=== PATIENT | male | born 1940 | race Caucasian/White ===

== ENCOUNTER 2023-01-11 16:38 | Inpatient (IN) | payer OTHER ==
[~2023-01-11] VITALS: Ht 170.2 cm; Wt 57.0 kg
[2023-01-11] MEDS ORDERED: MORPHINE SULFATE 4 MG/ML SYR/VIAL IV ONE (17:30)
[2023-01-11] MEDS ORDERED: diphenhdrAMINE HCL 50 MG/1 ML VL IV ONE (17:30)
[2023-01-11 17:57] LABS: Basophils # (auto) 0 10 ^3/uL (0-0.2); Basophils % (auto) 0.3 % (0.0-2.0); Eosinophils # (auto) 0.7 10 ^3/uL (0-0.8); Eosinophils % (auto) 9.1 % (0.0-7.0); Hematocrit 35.6 % (41.0-53.0); Hemoglobin 11.6 g/dL (13.5-17.5); Lymphocytes % (auto) 26.9 % (10.0-50.0); Mean Corpuscular Hemoglobin 30.5 pg (28.0-32.0); Mean Corpuscular Hgb Conc. 32.5 g/dL (32.0-36.0); Mean Corpuscular Volume 93.8 fL (80.0-100.0); Monocytes # (auto) 0.6 10 ^3/uL (0-1.3); Monocytes % (auto) 8.6 % (0.0-12.0); Neutrophils # (auto) 4.1 10 ^3/uL (1.6-8.6); Neutrophils % (auto) 55.1 % (37.0-80.0); Nucleated Red Blood Cells % 0.1 %; Red Blood Cells 3.79 10^6/uL (4.5-5.90); Red Cell Distribution Width 14.7 % (11.8-14.3); White Blood Cell 7.5 10^3/uL (4.4-10.8)
[2023-01-11 18:18] LABS: Albumin 1.9 g/dL (3.4-5.0); BUN/Creatinine Ratio 11.5; Bilirubin, Total 0.4 mg/dL (0.2-1.0); Calcium 7.5 mg/dL (8.5-10.1); Total Protein 5.9 g/dL (6.4-8.2)
[2023-01-11] MEDS ORDERED: SODIUM CHLORIDE 0.9% 1,000 ML IV ONE ×2 (19:00→21:30)
[2023-01-11] MEDS ORDERED: PANTOPRAZOLE 40 MG/10 ML VIAL INJ IV ONE (22:00)
[2023-01-11] MEDS ORDERED: DOXY100T2 PO (22:03)
[2023-01-11] MEDS ORDERED: FAMO20TA10 PO (22:03)
[2023-01-11] MEDS ORDERED: METH4PAK3 (22:03)
[2023-01-11] MEDS ORDERED: CETI-120 PO (22:03)
[2023-01-11] MEDS ORDERED: TRIO1TP TOP (22:03)
[2023-01-11] MEDS ORDERED: CLOB0.055 TOP (22:03)
[2023-01-11] MEDS ORDERED: ZOLP5TAB5 PO (22:03)
[2023-01-11] MEDS ORDERED: AZEL0.054 EACHEYE (22:03)
[2023-01-12] MEDS ORDERED: MIDAZOLAM HCL 5 MG/ML-1ML VIAL IV ONE
[2023-01-12] MEDS ORDERED: SODIUM CHLORIDE 0.9% 1,000 ML IV ONE
[2023-01-12 01:54] LABS: Urine Bacteria FEW /hpf (None Seen); Urine Blood 1+ /uL (Negative); Urine Hyaline Cast FEW /lpf (0 - 2); Urine Mucus FEW (None Seen); Urine WBC 1 /hpf (0 - 3)
[2023-01-12] MEDS: ASCORBIC ACID 500 MG TAB PO SCH ×3 (01:56→23:04)
[2023-01-12] MEDS: SODIUM CHLORIDE 0.9% 1,000 ML IV SCH ×2 (04:06→07:30)
[2023-01-12] MEDS: HYDROcodone-ACET 5/325MG TAB PO PRN ×3 (04:12→15:28)
[2023-01-12 06:35] LABS: Basophils # (auto) 0.1 10 ^3/uL (0-0.2); Eosinophils # (auto) 0.5 10 ^3/uL (0-0.8); Eosinophils % (auto) 7.8 % (0.0-7.0); Hematocrit 32.6 % (41.0-53.0); Hemoglobin 10.8 g/dL (13.5-17.5); Lymphocytes # (auto) 1.5 10 ^3/uL (0.4-5.4); Lymphocytes % (auto) 22.2 % (10.0-50.0); Mean Corpuscular Hemoglobin 30.1 pg (28.0-32.0); Mean Corpuscular Hgb Conc. 33.2 g/dL (32.0-36.0); Mean Corpuscular Volume 90.8 fL (80.0-100.0); Monocytes # (auto) 0.6 10 ^3/uL (0-1.3); Monocytes % (auto) 8.9 % (0.0-12.0); Neutrophils # (auto) 4.1 10 ^3/uL (1.6-8.6); Neutrophils % (auto) 60.1 % (37.0-80.0); Red Blood Cells 3.59 10^6/uL (4.5-5.90); Red Cell Distribution Width 14.2 % (11.8-14.3); White Blood Cell 6.8 10^3/uL (4.4-10.8)
[2023-01-12 06:41] LABS: Albumin 1.8 g/dL (3.4-5.0); Calcium 7.8 mg/dL (8.5-10.1)
[2023-01-12 06:44] LABS: BUN/Creatinine Ratio 13.1
[2023-01-12 06:46] LABS: Bilirubin, Total 0.4 mg/dL (0.2-1.0); Total Protein 6.3 g/dL (6.4-8.2)
[2023-01-12] MEDS: TRIAMCINOLONE ACET 0.1% TOPICAL CREAM 15GM TOP SCH (10:00)
[2023-01-12] MEDS: ENOXAPARIN SOD 30 MG/0.3 ML SYRINGE SC SCH (10:00)
[2023-01-12] MEDS: ZINC SULFATE 220mg CAP or TAB PO SCH (10:09)
[2023-01-12] MEDS: PANTOPRAZOLE 40 MG/10 ML VIAL INJ IV SCH (10:09)
[2023-01-12] MEDS: MULTIPLE VITAMIN TAB PO SCH (10:09)
[2023-01-12] MEDS: SODIUM BICARBONATE 50ML VIAL 50 ML in SOD CHL 0.45% 1,000 ML IV SCH ×2 (13:12→23:05)
[2023-01-12] MEDS ORDERED: cefTRIAXone 1GM/50ML D5W 50 ML IV ONE (13:30)
[2023-01-12 13:51] LABS: Protein, Urine 191.4 mg/dL (0.0-11.9)
[2023-01-12 22:55] VITALS: BP 168/86
[2023-01-12] MEDS: diphenhdrAMINE HCL 50 MG/1 ML VL IV PRN (23:05)
[2023-01-13 00:17] VITALS: BP 169/64
[2023-01-13 05:00] VITALS: BP 175/53
[2023-01-13] MEDS: diphenhdrAMINE HCL 50 MG/1 ML VL IV PRN ×3 (05:25→22:35)
[2023-01-13 06:24] LABS: Hematocrit 28.5 % (41.0-53.0); Hemoglobin 9.6 g/dL (13.5-17.5); Mean Corpuscular Hemoglobin 31.1 pg (28.0-32.0); Mean Corpuscular Hgb Conc. 33.6 g/dL (32.0-36.0); Mean Corpuscular Volume 92.3 fL (80.0-100.0); Red Blood Cells 3.09 10^6/uL (4.5-5.90); Red Cell Distribution Width 14.5 % (11.8-14.3); White Blood Cell 9.3 10^3/uL (4.4-10.8)
[2023-01-13 06:25] LABS: BUN/Creatinine Ratio 13.2; Calcium 7.5 mg/dL (8.5-10.1); Potassium 3.7 mmol/L (3.5-5.1)
[2023-01-13 07:01] LABS: Band Neutrophils % (manual) 0; Basophils % (manual) 0 (0.0-2.0); Blast Cells 0; Metamyelocytes % 0; Myelocytes % 0; Promyelocytes % 0; Reactive Lymphocytes 0
[2023-01-13 09:00] VITALS: BP 147/80
[2023-01-13 09:14] LABS: Eosinophils % (manual) 18 (0-7); Lymphocytes % (manual) 15 (10.0-50.0); Monocytes % (manual) 4 (0-12)
[2023-01-13] MEDS: ENOXAPARIN SOD 30 MG/0.3 ML SYRINGE SC SCH (10:00)
[2023-01-13] MEDS: PANTOPRAZOLE 40 MG/10 ML VIAL INJ IV SCH (12:23)
[2023-01-13] MEDS: cefTRIAXone 1GM/50ML D5W 50 ML IV SCH (12:23)
[2023-01-13] MEDS: ASCORBIC ACID 500 MG TAB PO SCH ×2 (12:23→21:13)
[2023-01-13] MEDS: ZINC SULFATE 220mg CAP or TAB PO SCH (12:23)
[2023-01-13] MEDS: MULTIPLE VITAMIN TAB PO SCH (12:23)
[2023-01-13] MEDS: TRIAMCINOLONE ACET 0.1% TOPICAL CREAM 15GM TOP SCH (12:28)
[2023-01-13] MEDS: ERGOCALCIFEROL 50,000 UNIT(1.25MG) CAP PO SCH (12:28)
[2023-01-13 12:55] VITALS: BP 120/60
[2023-01-13] MEDS: SODIUM BICARBONATE 50ML VIAL 50 ML in SOD CHL 0.45% 1,000 ML IV SCH (16:00)
[2023-01-13 17:00] VITALS: BP 158/72
[2023-01-13 22:00] VITALS: BP 134/80
[2023-01-14] MEDS: SODIUM BICARBONATE 50ML VIAL 50 ML in SOD CHL 0.45% 1,000 ML IV SCH (04:13)
[2023-01-14 05:00] VITALS: BP 175/73
[2023-01-14 06:35] LABS: Hematocrit 28.4 % (41.0-53.0); Hemoglobin 9.7 g/dL (13.5-17.5); Mean Corpuscular Hemoglobin 30.6 pg (28.0-32.0); Mean Corpuscular Volume 89.9 fL (80.0-100.0); Red Blood Cells 3.16 10^6/uL (4.5-5.90); Red Cell Distribution Width 14.1 % (11.8-14.3); White Blood Cell 9.5 10^3/uL (4.4-10.8)
[2023-01-14 06:51] LABS: Band Neutrophils % (manual) 0; Basophils % (manual) 0 (0.0-2.0); Blast Cells 0; Metamyelocytes % 0; Myelocytes % 0; Promyelocytes % 0; Reactive Lymphocytes 0
[2023-01-14 06:53] LABS: BUN/Creatinine Ratio 13.9; Calcium 7.8 mg/dL (8.5-10.1); Potassium 3.5 mmol/L (3.5-5.1)
[2023-01-14 07:28] LABS: Eosinophils % (manual) 25 (0-7); Lymphocytes % (manual) 15 (10.0-50.0); Monocytes % (manual) 6 (0-12)
[2023-01-14 08:45] VITALS: BP 186/69
[2023-01-14] MEDS: cefTRIAXone 1GM/50ML D5W 50 ML IV SCH (08:51)
[2023-01-14] MEDS: MULTIPLE VITAMIN TAB PO SCH (09:54)
[2023-01-14] MEDS: ZINC SULFATE 220mg CAP or TAB PO SCH (09:54)
[2023-01-14] MEDS: ASCORBIC ACID 500 MG TAB PO SCH ×2 (09:54→21:29)
[2023-01-14] MEDS: ENOXAPARIN SOD 30 MG/0.3 ML SYRINGE SC SCH (09:54)
[2023-01-14] MEDS: NICOTINE 14 MG/24HR TOPICAL PATCH TD SCH (09:55)
[2023-01-14] MEDS: TRIAMCINOLONE ACET 0.1% TOPICAL CREAM 15GM TOP SCH (14:33)
[2023-01-14] MEDS: diphenhdrAMINE HCL 50 MG/1 ML VL IV PRN (16:49)
[2023-01-14 17:00] VITALS: BP 124/76
[2023-01-14 21:49] VITALS: BP 153/55
[2023-01-15 04:31] VITALS: BP 134/56
[2023-01-15 06:34] LABS: Hematocrit 28.4 % (41.0-53.0); Hemoglobin 9.3 g/dL (13.5-17.5); Mean Corpuscular Hemoglobin 30.7 pg (28.0-32.0); Red Blood Cells 3.05 10^6/uL (4.5-5.90); Red Cell Distribution Width 14.6 % (11.8-14.3); White Blood Cell 10.1 10^3/uL (4.4-10.8)
[2023-01-15 07:20] LABS: Basophils % (manual) 0 (0.0-2.0); Blast Cells 0; Metamyelocytes % 0; Myelocytes % 0; Promyelocytes % 0; Reactive Lymphocytes 0
[2023-01-15 07:25] LABS: Calcium 7.3 mg/dL (8.5-10.1); Potassium 3.6 mmol/L (3.5-5.1)
[2023-01-15 07:38] LABS: BUN/Creatinine Ratio 12.8
[2023-01-15 09:00] VITALS: BP 119/63
[2023-01-15 09:06] LABS: Band Neutrophils % (manual) 10; Lymphocytes % (manual) 20 (10.0-50.0); Monocytes % (manual) 6 (0-12)
[2023-01-15 09:07] LABS: Eosinophils % (manual) 17 (0-7)
[2023-01-15] MEDS: TRIAMCINOLONE ACET 0.1% TOPICAL CREAM 15GM TOP SCH (09:48)
[2023-01-15] MEDS: MULTIPLE VITAMIN TAB PO SCH (09:49)
[2023-01-15] MEDS: diphenhdrAMINE HCL 50 MG/1 ML VL IV PRN ×2 (09:50→21:09)
[2023-01-15] MEDS: ZINC SULFATE 220mg CAP or TAB PO SCH (09:51)
[2023-01-15] MEDS: NICOTINE 14 MG/24HR TOPICAL PATCH TD SCH (09:51)
[2023-01-15] MEDS: ASCORBIC ACID 500 MG TAB PO SCH ×2 (09:53→21:09)
[2023-01-15] MEDS: ENOXAPARIN SOD 30 MG/0.3 ML SYRINGE SC SCH (09:53)
[2023-01-15] MEDS: cefTRIAXone 1GM/50ML D5W 50 ML IV SCH (09:54)
[2023-01-15 13:00] VITALS: BP 139/88
[2023-01-15] MEDS ORDERED: ATOR-47 PO (13:18)
[2023-01-15] MEDS: Ensure Enlive Strawberry 8oz Bottle PO SCH (18:00)
[2023-01-15] MEDS: ACETAMINOPHEN 325 MG TAB PO PRN (21:09)
[2023-01-16] MEDS: diphenhdrAMINE HCL 50 MG/1 ML VL IV PRN ×2 (03:06→16:04)
[2023-01-16 09:00] VITALS: BP 107/63
[2023-01-16] MEDS: cefTRIAXone 1GM/50ML D5W 50 ML IV SCH (09:51)
[2023-01-16] MEDS: MULTIPLE VITAMIN TAB PO SCH (09:51)
[2023-01-16] MEDS: Ensure Enlive Strawberry 8oz Bottle PO SCH ×2 (09:51→18:32)
[2023-01-16] MEDS: ZINC SULFATE 220mg CAP or TAB PO SCH (09:52)
[2023-01-16] MEDS: ACETAMINOPHEN 325 MG TAB PO PRN (09:52)
[2023-01-16] MEDS: NICOTINE 14 MG/24HR TOPICAL PATCH TD SCH (09:53)
[2023-01-16] MEDS: Pro-Stat SF 30ml Vanilla PO SCH (09:53)
[2023-01-16] MEDS: ENOXAPARIN SOD 30 MG/0.3 ML SYRINGE SC SCH (09:53)
[2023-01-16] MEDS: ASCORBIC ACID 500 MG TAB PO SCH ×2 (09:53→21:29)
[2023-01-16] MEDS: TRIAMCINOLONE ACET 0.1% TOPICAL CREAM 15GM TOP SCH (09:54)
[2023-01-16 13:00] VITALS: BP 118/62
[2023-01-16 17:00] VITALS: BP 165/74
[2023-01-16 18:17] VITALS: BP 163/76
[2023-01-16 22:00] VITALS: BP 171/70
[2023-01-17] VITALS (8 sets, daily range): BP systolic 136–174; BP diastolic 55–74
[2023-01-17] MEDS: cefTRIAXone 1GM/50ML D5W 50 ML IV SCH (09:37)
[2023-01-17] MEDS: Ensure Enlive Strawberry 8oz Bottle PO SCH ×2 (09:38→19:45)
[2023-01-17] MEDS: ENOXAPARIN SOD 30 MG/0.3 ML SYRINGE SC SCH (09:38)
[2023-01-17] MEDS: ASCORBIC ACID 500 MG TAB PO SCH ×2 (09:39→21:58)
[2023-01-17] MEDS: MULTIPLE VITAMIN TAB PO SCH (09:39)
[2023-01-17] MEDS: ZINC SULFATE 220mg CAP or TAB PO SCH (09:39)
[2023-01-17] MEDS: TRIAMCINOLONE ACET 0.1% TOPICAL CREAM 15GM TOP SCH (09:50)
[2023-01-17] MEDS: NICOTINE 14 MG/24HR TOPICAL PATCH TD SCH (09:52)
[2023-01-17] MEDS: Pro-Stat SF 30ml Vanilla PO SCH (13:12)
[2023-01-18 05:00] VITALS: BP 123/46
[2023-01-18] MEDS: ENOXAPARIN SOD 30 MG/0.3 ML SYRINGE SC SCH (08:57)
[2023-01-18] MEDS: MULTIPLE VITAMIN TAB PO SCH (08:58)
[2023-01-18] MEDS: diphenhdrAMINE HCL 50 MG/1 ML VL IV PRN ×2 (08:58→17:55)
[2023-01-18] MEDS: cefTRIAXone 1GM/50ML D5W 50 ML IV SCH (08:58)
[2023-01-18] MEDS: ASCORBIC ACID 500 MG TAB PO SCH ×2 (08:58→21:48)
[2023-01-18] MEDS: ZINC SULFATE 220mg CAP or TAB PO SCH (08:58)
[2023-01-18 09:00] VITALS: BP 127/40
[2023-01-18] MEDS: Ensure Enlive Strawberry 8oz Bottle PO SCH ×2 (09:06→18:00)
[2023-01-18] MEDS: Pro-Stat SF 30ml Vanilla PO SCH (10:00)
[2023-01-18] MEDS: NICOTINE 14 MG/24HR TOPICAL PATCH TD SCH (10:14)
[2023-01-18] MEDS: TRIAMCINOLONE ACET 0.1% TOPICAL CREAM 15GM TOP SCH (10:14)
[2023-01-18 12:30] VITALS: BP 156/55
[2023-01-18] MEDS ORDERED: methylPREDNISolone SOD SUCC 40 MG/ML VL IV ONE (14:15)
[2023-01-18 16:44] VITALS: BP 133/41
[2023-01-18] MEDS: methylPREDNISolone SOD SUCC 40 MG/ML VL IV SCH (21:48)
[2023-01-18 22:00] VITALS: BP 131/55
[2023-01-19] MEDS: diphenhdrAMINE HCL 50 MG/1 ML VL IV PRN ×3 (01:57→16:42)
[2023-01-19 05:00] VITALS: BP 164/73
[2023-01-19] MEDS: hydrALAZINE HCL 20 MG/ML VL IV PRN (05:30)
[2023-01-19] MEDS: Ensure Enlive Strawberry 8oz Bottle PO SCH ×2 (08:00→17:38)
[2023-01-19 08:52] VITALS: BP 136/71
[2023-01-19] MEDS: ZINC SULFATE 220mg CAP or TAB PO SCH (09:55)
[2023-01-19] MEDS: MULTIPLE VITAMIN TAB PO SCH (09:55)
[2023-01-19] MEDS: ASCORBIC ACID 500 MG TAB PO SCH ×2 (09:55→22:36)
[2023-01-19] MEDS: methylPREDNISolone SOD SUCC 40 MG/ML VL IV SCH ×2 (09:56→22:36)
[2023-01-19] MEDS: ENOXAPARIN SOD 30 MG/0.3 ML SYRINGE SC SCH (09:56)
[2023-01-19] MEDS: NICOTINE 14 MG/24HR TOPICAL PATCH TD SCH (09:56)
[2023-01-19] MEDS: TRIAMCINOLONE ACET 0.1% TOPICAL CREAM 15GM TOP SCH (09:57)
[2023-01-19] MEDS: Pro-Stat SF 30ml Vanilla PO SCH (10:00)
[2023-01-19 13:00] VITALS: BP 132/74
[2023-01-19 16:47] VITALS: BP 157/70
[2023-01-19 21:49] VITALS: BP 124/61
[2023-01-20 05:13] VITALS: BP 163/69
[2023-01-20] MEDS: hydrALAZINE HCL 20 MG/ML VL IV PRN (06:21)
[2023-01-20] MEDS: Ensure Enlive Strawberry 8oz Bottle PO SCH ×2 (08:21→18:52)
[2023-01-20] MEDS: Pro-Stat SF 30ml Vanilla PO SCH (08:22)
[2023-01-20] MEDS: methylPREDNISolone SOD SUCC 40 MG/ML VL IV SCH ×2 (09:20→22:07)
[2023-01-20] MEDS: NICOTINE 14 MG/24HR TOPICAL PATCH TD SCH (09:22)
[2023-01-20] MEDS: ENOXAPARIN SOD 30 MG/0.3 ML SYRINGE SC SCH (09:22)
[2023-01-20] MEDS: ZINC SULFATE 220mg CAP or TAB PO SCH (09:23)
[2023-01-20] MEDS: ASCORBIC ACID 500 MG TAB PO SCH ×2 (09:23→22:07)
[2023-01-20] MEDS: MULTIPLE VITAMIN TAB PO SCH (09:24)
[2023-01-20] MEDS: TRIAMCINOLONE ACET 0.1% TOPICAL CREAM 15GM TOP SCH (09:28)
[2023-01-20 13:00] VITALS: BP 159/60
[2023-01-20] MEDS: ERGOCALCIFEROL 50,000 UNIT(1.25MG) CAP PO SCH (14:34)
[2023-01-20 17:00] VITALS: BP 144/72
[2023-01-20 22:00] VITALS: BP 137/50
[2023-01-20] MEDS ORDERED: [UNRECOGNIZED DRUG - OTHER] TOP SCH (22:00)
[2023-01-21 05:46] VITALS: BP 156/75
[2023-01-21] MEDS: hydrALAZINE HCL 20 MG/ML VL IV PRN (06:06)
[2023-01-21] MEDS: Ensure Enlive Strawberry 8oz Bottle PO SCH ×2 (07:54→17:43)
[2023-01-21 08:49] VITALS: BP 117/50
[2023-01-21] MEDS: EUCERIN CREAM 2OZ TUBE TOP SCH ×2 (10:00→21:15)
[2023-01-21] MEDS: ASCORBIC ACID 500 MG TAB PO SCH ×2 (10:00→21:14)
[2023-01-21] MEDS: Pro-Stat SF 30ml Vanilla PO SCH (10:00)
[2023-01-21] MEDS: MULTIPLE VITAMIN TAB PO SCH (10:00)
[2023-01-21] MEDS: NICOTINE 14 MG/24HR TOPICAL PATCH TD SCH (10:00)
[2023-01-21] MEDS: ENOXAPARIN SOD 30 MG/0.3 ML SYRINGE SC SCH (10:00)
[2023-01-21] MEDS: methylPREDNISolone SOD SUCC 40 MG/ML VL IV SCH ×2 (10:00→21:14)
[2023-01-21] MEDS: ZINC SULFATE 220mg CAP or TAB PO SCH (10:00)
[2023-01-21] MEDS: TRIAMCINOLONE ACET 0.1% TOPICAL CREAM 15GM TOP SCH ×2 (10:00→21:15)
[2023-01-21 13:21] VITALS: BP 119/59
[2023-01-21] MEDS ORDERED: TRIAMCINOLONE ACET 0.1% TOPICAL CREAM 15GM TOP SCH (14:00)
[2023-01-21 16:56] VITALS: BP 143/61
[2023-01-21] MEDS: [UNRECOGNIZED DRUG - OTHER] TOP SCH (21:15)
[2023-01-21 21:53] VITALS: BP 125/62
[2023-01-22 05:00] VITALS: BP 128/68
[2023-01-22] MEDS: Ensure Enlive Strawberry 8oz Bottle PO SCH ×2 (08:00→18:00)
[2023-01-22 09:00] VITALS: BP 135/52
[2023-01-22] MEDS: ZINC SULFATE 220mg CAP or TAB PO SCH (10:00)
[2023-01-22] MEDS: methylPREDNISolone SOD SUCC 40 MG/ML VL IV SCH ×2 (10:00→23:05)
[2023-01-22] MEDS: NICOTINE 14 MG/24HR TOPICAL PATCH TD SCH (10:00)
[2023-01-22] MEDS: EUCERIN CREAM 2OZ TUBE TOP SCH ×2 (10:00→23:10)
[2023-01-22] MEDS: TRIAMCINOLONE ACET 0.1% TOPICAL CREAM 15GM TOP SCH ×2 (10:00→23:10)
[2023-01-22] MEDS: ENOXAPARIN SOD 30 MG/0.3 ML SYRINGE SC SCH (10:00)
[2023-01-22] MEDS: [UNRECOGNIZED DRUG - OTHER] TOP SCH ×2 (10:00→23:10)
[2023-01-22] MEDS: ASCORBIC ACID 500 MG TAB PO SCH ×2 (10:00→23:05)
[2023-01-22] MEDS: Pro-Stat SF 30ml Vanilla PO SCH (10:00)
[2023-01-22] MEDS: MULTIPLE VITAMIN TAB PO SCH (10:00)
[2023-01-22 13:00] VITALS: BP 171/76
[2023-01-22 17:00] VITALS: BP 163/72
[2023-01-22] MEDS: diphenhdrAMINE HCL 50 MG/1 ML VL IV PRN (23:07)
[2023-01-23 05:18] VITALS: BP 138/70
[2023-01-23 08:00] VITALS: BP 151/63
[2023-01-23] MEDS: Ensure Enlive Strawberry 8oz Bottle PO SCH ×2 (08:49→17:33)
[2023-01-23] MEDS: NICOTINE 14 MG/24HR TOPICAL PATCH TD SCH (10:24)
[2023-01-23] MEDS: methylPREDNISolone SOD SUCC 40 MG/ML VL IV SCH ×2 (10:29→21:47)
[2023-01-23] MEDS: EUCERIN CREAM 2OZ TUBE TOP SCH ×2 (10:29→21:47)
[2023-01-23] MEDS: MULTIPLE VITAMIN TAB PO SCH (10:29)
[2023-01-23] MEDS: TRIAMCINOLONE ACET 0.1% TOPICAL CREAM 15GM TOP SCH ×2 (10:29→21:47)
[2023-01-23] MEDS: ZINC SULFATE 220mg CAP or TAB PO SCH (10:29)
[2023-01-23] MEDS: Pro-Stat SF 30ml Vanilla PO SCH (10:29)
[2023-01-23] MEDS: ASCORBIC ACID 500 MG TAB PO SCH ×2 (10:29→21:47)
[2023-01-23] MEDS: [UNRECOGNIZED DRUG - OTHER] TOP SCH ×2 (10:29→21:47)
[2023-01-23] MEDS: ENOXAPARIN SOD 30 MG/0.3 ML SYRINGE SC SCH (10:29)
[2023-01-23 12:00] VITALS: BP 156/72
[2023-01-23 16:00] VITALS: BP 156/69
[2023-01-23 22:00] VITALS: BP 133/50
[2023-01-24 05:00] VITALS: BP 160/71
[2023-01-24 05:49] LABS: Basophils # (auto) 0 10 ^3/uL (0-0.2); Basophils % (auto) 0.1 % (0.0-2.0); Eosinophils # (auto) 0 10 ^3/uL (0-0.8); Hematocrit 27.2 % (41.0-53.0); Lymphocytes # (auto) 0.9 10 ^3/uL (0.4-5.4); Lymphocytes % (auto) 6.3 % (10.0-50.0); Mean Corpuscular Hemoglobin 30.2 pg (28.0-32.0); Mean Corpuscular Hgb Conc. 33.1 g/dL (32.0-36.0); Mean Corpuscular Volume 91.1 fL (80.0-100.0); Monocytes # (auto) 0.4 10 ^3/uL (0-1.3); Monocytes % (auto) 2.9 % (0.0-12.0); Neutrophils # (auto) 13.4 10 ^3/uL (1.6-8.6); Neutrophils % (auto) 90.7 % (37.0-80.0); Red Blood Cells 2.99 10^6/uL (4.5-5.90); Red Cell Distribution Width 14.2 % (11.8-14.3); White Blood Cell 14.7 10^3/uL (4.4-10.8)
[2023-01-24] MEDS: Ensure Enlive Strawberry 8oz Bottle PO SCH ×2 (08:00→18:13)
[2023-01-24 09:03] VITALS: BP 133/53
[2023-01-24 09:06] LABS: Calcium 8.2 mg/dL (8.5-10.1); Magnesium 2.5 mg/dL (1.6-2.6); Potassium 4.9 mmol/L (3.5-5.1)
[2023-01-24 09:11] LABS: BUN/Creatinine Ratio 36.3 (10.0-20.0); Bilirubin, Total 0.3 mg/dL (0.2-1.0); Total Protein 6.8 g/dL (6.4-8.2)
[2023-01-24] MEDS: Pro-Stat SF 30ml Vanilla PO SCH (10:00)
[2023-01-24] MEDS: [UNRECOGNIZED DRUG - OTHER] TOP SCH ×2 (10:00→21:47)
[2023-01-24] MEDS: EUCERIN CREAM 2OZ TUBE TOP SCH ×2 (10:00→21:44)
[2023-01-24] MEDS: TRIAMCINOLONE ACET 0.1% TOPICAL CREAM 15GM TOP SCH ×2 (10:00→21:46)
[2023-01-24] MEDS: NICOTINE 14 MG/24HR TOPICAL PATCH TD SCH (10:32)
[2023-01-24] MEDS: methylPREDNISolone SOD SUCC 40 MG/ML VL IV SCH (10:32)
[2023-01-24] MEDS: ZINC SULFATE 220mg CAP or TAB PO SCH (10:33)
[2023-01-24] MEDS: MULTIPLE VITAMIN TAB PO SCH (10:33)
[2023-01-24] MEDS: ASCORBIC ACID 500 MG TAB PO SCH ×2 (10:33→21:42)
[2023-01-24 13:00] VITALS: BP 134/60
[2023-01-24] MEDS ORDERED: AZITHROMYCIN 500MG/ 250ML 250 ML IV ONE (13:45)
[2023-01-24] MEDS ORDERED: CEFEPIME 1GM/ 50ML 50 ML IV ONE (13:45)
[2023-01-24] MEDS ORDERED: DEXTROSE (50%) 50ML SYRG IV PRN (13:45)
[2023-01-24 16:48] VITALS: BP 163/67
[2023-01-24] MEDS: InsuLIN REG 1unit/0.01ml Soln (100units/ml) SC SCH ×2 (16:56→21:49)
[2023-01-24] MEDS: ACCU-CHEK COMFORT CURVE STRIP VI SCH ×2 (17:07→21:47)
[2023-01-24] MEDS: SODIUM CHLORIDE 0.9% 1,000 ML IV SCH (17:08)
[2023-01-24] MEDS: diphenhdrAMINE HCL 50 MG/1 ML VL IV PRN (18:13)
[2023-01-24] MEDS: CEFEPIME 1GM/ 50ML 50 ML IV SCH (21:43)
[2023-01-25] MEDS: SODIUM CHLORIDE 0.9% 1,000 ML IV SCH ×2 (03:05→16:25)
[2023-01-25] MEDS: ACCU-CHEK COMFORT CURVE STRIP VI SCH ×4 (06:07→23:20)
[2023-01-25] MEDS: InsuLIN REG 1unit/0.01ml Soln (100units/ml) SC SCH ×4 (06:09→23:23)
[2023-01-25 08:00] VITALS: BP 121/50
[2023-01-25] MEDS: Ensure Enlive Strawberry 8oz Bottle PO SCH ×2 (08:35→17:39)
[2023-01-25 09:00] VITALS: BP 121/50
[2023-01-25] MEDS ORDERED: AZITHROMYCIN 500MG/ 250ML 250 ML IV SCH (10:00)
[2023-01-25] MEDS: CEFEPIME 1GM/ 50ML 50 ML IV SCH ×2 (11:46→23:18)
[2023-01-25] MEDS: predniSONE 20 MG TAB PO SCH (11:47)
[2023-01-25] MEDS: MULTIPLE VITAMIN TAB PO SCH (11:47)
[2023-01-25] MEDS: ZINC SULFATE 220mg CAP or TAB PO SCH (11:47)
[2023-01-25] MEDS: Pro-Stat SF 30ml Vanilla PO SCH (11:47)
[2023-01-25] MEDS: ASCORBIC ACID 500 MG TAB PO SCH ×2 (11:47→23:18)
[2023-01-25] MEDS: [UNRECOGNIZED DRUG - OTHER] TOP SCH ×2 (11:49→23:20)
[2023-01-25] MEDS: EUCERIN CREAM 2OZ TUBE TOP SCH ×2 (11:49→23:20)
[2023-01-25] MEDS: NICOTINE 14 MG/24HR TOPICAL PATCH TD SCH (11:49)
[2023-01-25] MEDS: TRIAMCINOLONE ACET 0.1% TOPICAL CREAM 15GM TOP SCH ×2 (11:50→23:20)
[2023-01-25] MEDS ORDERED: INSULIN LANTUS (GLARGINE) 1 /0.01ml (100units/ml) SC ONE (12:00)
[2023-01-25] MEDS ORDERED: DOCUSATE SOD 100 MG CAP PO ONE (12:00)
[2023-01-25] MEDS ORDERED: LACTULOSE 20Gm/30ML SOLN PO ONE (12:00)
[2023-01-25] MEDS ORDERED: FLEET ENEMA(ADULT) 135 ML PR ONE (12:00)
[2023-01-25 12:09] LABS: Basophils # (auto) 0 10 ^3/uL (0-0.2); Basophils % (auto) 0.1 % (0.0-2.0); Eosinophils # (auto) 0.2 10 ^3/uL (0-0.8); Eosinophils % (auto) 1.2 % (0.0-7.0); Hematocrit 30.2 % (41.0-53.0); Hemoglobin 9.6 g/dL (13.5-17.5); Lymphocytes # (auto) 1.7 10 ^3/uL (0.4-5.4); Lymphocytes % (auto) 13.6 % (10.0-50.0); Mean Corpuscular Hemoglobin 29.1 pg (28.0-32.0); Mean Corpuscular Hgb Conc. 31.9 g/dL (32.0-36.0); Mean Corpuscular Volume 91.2 fL (80.0-100.0); Monocytes % (auto) 7.5 % (0.0-12.0); Neutrophils # (auto) 9.9 10 ^3/uL (1.6-8.6); Neutrophils % (auto) 77.6 % (37.0-80.0); Nucleated Red Blood Cells % 0.1 %; Red Blood Cells 3.31 10^6/uL (4.5-5.90); Red Cell Distribution Width 14.4 % (11.8-14.3); White Blood Cell 12.8 10^3/uL (4.4-10.8)
[2023-01-25 12:16] LABS: Calcium 8.3 mg/dL (8.5-10.1); Potassium 4.4 mmol/L (3.5-5.1)
[2023-01-25 13:00] VITALS: BP 151/64
[2023-01-25 17:00] VITALS: BP 126/47
[2023-01-25 22:00] VITALS: BP 114/58
[2023-01-25] MEDS: DOCUSATE SOD 100 MG CAP PO SCH (23:18)
[2023-01-25] MEDS: INSULIN LANTUS (GLARGINE) 1 /0.01ml (100units/ml) SC SCH (23:19)
[2023-01-26 05:00] VITALS: BP 125/51
[2023-01-26] MEDS: SODIUM CHLORIDE 0.9% 1,000 ML IV SCH ×2 (06:15→20:48)
[2023-01-26] MEDS: ACCU-CHEK COMFORT CURVE STRIP VI SCH ×4 (06:16→22:34)
[2023-01-26] MEDS: InsuLIN REG 1unit/0.01ml Soln (100units/ml) SC SCH ×4 (06:19→22:37)
[2023-01-26] MEDS: INSULIN LANTUS (GLARGINE) 1 /0.01ml (100units/ml) SC SCH ×2 (06:21→22:36)
[2023-01-26 06:27] LABS: Basophils # (auto) 0 10 ^3/uL (0-0.2); Basophils % (auto) 0.1 % (0.0-2.0); Eosinophils # (auto) 0.1 10 ^3/uL (0-0.8); Hematocrit 25.5 % (41.0-53.0); Hemoglobin 8.5 g/dL (13.5-17.5); Lymphocytes # (auto) 1.6 10 ^3/uL (0.4-5.4); Lymphocytes % (auto) 11.8 % (10.0-50.0); Mean Corpuscular Hgb Conc. 33.1 g/dL (32.0-36.0); Mean Corpuscular Volume 90.7 fL (80.0-100.0); Monocytes # (auto) 0.9 10 ^3/uL (0-1.3); Monocytes % (auto) 6.8 % (0.0-12.0); Neutrophils # (auto) 11.2 10 ^3/uL (1.6-8.6); Neutrophils % (auto) 80.3 % (37.0-80.0); Red Blood Cells 2.82 10^6/uL (4.5-5.90); Red Cell Distribution Width 14.4 % (11.8-14.3); White Blood Cell 13.9 10^3/uL (4.4-10.8)
[2023-01-26 06:49] LABS: BUN/Creatinine Ratio 33.9 (10.0-20.0)
[2023-01-26 09:00] VITALS: BP 117/52
[2023-01-26] MEDS: ASCORBIC ACID 500 MG TAB PO SCH ×2 (09:52→20:57)
[2023-01-26] MEDS: MULTIPLE VITAMIN TAB PO SCH (09:52)
[2023-01-26] MEDS: predniSONE 20 MG TAB PO SCH (09:52)
[2023-01-26] MEDS: ZINC SULFATE 220mg CAP or TAB PO SCH (09:52)
[2023-01-26] MEDS: DOCUSATE SOD 100 MG CAP PO SCH ×2 (09:53→20:57)
[2023-01-26] MEDS: NICOTINE 14 MG/24HR TOPICAL PATCH TD SCH (09:54)
[2023-01-26] MEDS: CEFEPIME 1GM/ 50ML 50 ML IV SCH ×2 (09:55→20:57)
[2023-01-26] MEDS: Ensure Enlive Strawberry 8oz Bottle PO SCH ×2 (09:56→17:44)
[2023-01-26] MEDS: [UNRECOGNIZED DRUG - OTHER] TOP SCH ×2 (10:03→20:58)
[2023-01-26] MEDS: EUCERIN CREAM 2OZ TUBE TOP SCH ×2 (10:03→20:58)
[2023-01-26] MEDS: Pro-Stat SF 30ml Vanilla PO SCH (10:03)
[2023-01-26] MEDS: TRIAMCINOLONE ACET 0.1% TOPICAL CREAM 15GM TOP SCH ×2 (10:03→20:58)
[2023-01-26] MEDS: ACETAMINOPHEN 325 MG TAB PO PRN ×2 (11:40→20:48)
[2023-01-26 13:00] VITALS: BP 127/59
[2023-01-26 17:00] VITALS: BP 129/60
[2023-01-26 21:30] VITALS: BP 126/58
[2023-01-26] MEDS ORDERED: INSULIN LANTUS (GLARGINE) 1 /0.01ml (100units/ml) SC ONE (23:45)
[2023-01-27 05:00] VITALS: BP 126/68
[2023-01-27] MEDS: INSULIN LANTUS (GLARGINE) 1 /0.01ml (100units/ml) SC SCH ×2 (05:58→21:39)
[2023-01-27] MEDS: ACCU-CHEK COMFORT CURVE STRIP VI SCH ×4 (05:59→21:39)
[2023-01-27] MEDS: InsuLIN REG 1unit/0.01ml Soln (100units/ml) SC SCH ×4 (06:00→21:38)
[2023-01-27 09:00] VITALS: BP 130/57
[2023-01-27] MEDS: CEFEPIME 1GM/ 50ML 50 ML IV SCH ×2 (09:48→21:02)
[2023-01-27] MEDS: Ensure Enlive Strawberry 8oz Bottle PO SCH ×2 (09:48→17:28)
[2023-01-27] MEDS: SODIUM CHLORIDE 0.9% 1,000 ML IV SCH ×2 (09:48→17:28)
[2023-01-27] MEDS: ZINC SULFATE 220mg CAP or TAB PO SCH (09:48)
[2023-01-27] MEDS: predniSONE 20 MG TAB PO SCH (09:48)
[2023-01-27] MEDS: DOCUSATE SOD 100 MG CAP PO SCH ×2 (09:49→21:03)
[2023-01-27] MEDS: MULTIPLE VITAMIN TAB PO SCH (09:49)
[2023-01-27] MEDS: [UNRECOGNIZED DRUG - OTHER] TOP SCH ×2 (09:49→21:03)
[2023-01-27] MEDS: ASCORBIC ACID 500 MG TAB PO SCH ×2 (09:49→21:03)
[2023-01-27] MEDS: NICOTINE 14 MG/24HR TOPICAL PATCH TD SCH (09:49)
[2023-01-27] MEDS: Pro-Stat SF 30ml Vanilla PO SCH (09:49)
[2023-01-27] MEDS: EUCERIN CREAM 2OZ TUBE TOP SCH ×2 (09:50→21:03)
[2023-01-27] MEDS: TRIAMCINOLONE ACET 0.1% TOPICAL CREAM 15GM TOP SCH ×2 (09:50→21:04)
[2023-01-27] MEDS: ERGOCALCIFEROL 50,000 UNIT(1.25MG) CAP PO SCH (11:38)
[2023-01-27 13:00] VITALS: BP 134/71
[2023-01-27 17:00] VITALS: BP 124/60
[2023-01-27 22:00] VITALS: BP 136/51
[2023-01-28 05:00] VITALS: BP 150/69
[2023-01-28] MEDS: InsuLIN REG 1unit/0.01ml Soln (100units/ml) SC SCH ×4 (06:12→22:35)
[2023-01-28] MEDS: ACCU-CHEK COMFORT CURVE STRIP VI SCH ×4 (06:12→22:35)
[2023-01-28] MEDS: INSULIN LANTUS (GLARGINE) 1 /0.01ml (100units/ml) SC SCH (06:28)
[2023-01-28] MEDS: CEFEPIME 1GM/ 50ML 50 ML IV SCH ×2 (10:43→21:45)
[2023-01-28] MEDS: ASCORBIC ACID 500 MG TAB PO SCH ×2 (10:44→21:46)
[2023-01-28] MEDS: [UNRECOGNIZED DRUG - OTHER] TOP SCH ×2 (10:44→21:56)
[2023-01-28] MEDS: ZINC SULFATE 220mg CAP or TAB PO SCH (10:44)
[2023-01-28] MEDS: DOCUSATE SOD 100 MG CAP PO SCH ×2 (10:44→21:46)
[2023-01-28] MEDS: Ensure Enlive Strawberry 8oz Bottle PO SCH ×2 (10:44→17:53)
[2023-01-28] MEDS: Pro-Stat SF 30ml Vanilla PO SCH (10:44)
[2023-01-28] MEDS: MULTIPLE VITAMIN TAB PO SCH (10:44)
[2023-01-28] MEDS: EUCERIN CREAM 2OZ TUBE TOP SCH ×2 (10:45→21:56)
[2023-01-28] MEDS: TRIAMCINOLONE ACET 0.1% TOPICAL CREAM 15GM TOP SCH ×2 (10:45→21:57)
[2023-01-28] MEDS: NICOTINE 14 MG/24HR TOPICAL PATCH TD SCH (10:46)
[2023-01-28] MEDS: SODIUM CHLORIDE 0.9% 1,000 ML IV SCH (11:05)
[2023-01-28 13:00] VITALS: BP 143/70
[2023-01-28] MEDS: ACETAMINOPHEN 325 MG TAB PO PRN (15:39)
[2023-01-28 16:12] VITALS: BP 129/64
[2023-01-28 22:00] VITALS: BP 116/50
[2023-01-29 05:00] VITALS: BP 119/56
[2023-01-29] MEDS: ACCU-CHEK COMFORT CURVE STRIP VI SCH ×4 (06:04→22:56)
[2023-01-29] MEDS: InsuLIN REG 1unit/0.01ml Soln (100units/ml) SC SCH ×4 (06:04→22:54)
[2023-01-29] MEDS: Ensure Enlive Strawberry 8oz Bottle PO SCH ×2 (08:11→18:22)
[2023-01-29 09:00] VITALS: BP 133/60
[2023-01-29] MEDS: MULTIPLE VITAMIN TAB PO SCH (09:54)
[2023-01-29] MEDS: ACETAMINOPHEN 325 MG TAB PO PRN ×2 (09:54→15:43)
[2023-01-29] MEDS: ZINC SULFATE 220mg CAP or TAB PO SCH (09:54)
[2023-01-29] MEDS: DOCUSATE SOD 100 MG CAP PO SCH ×2 (09:54→22:53)
[2023-01-29] MEDS: CEFEPIME 1GM/ 50ML 50 ML IV SCH ×2 (09:56→22:00)
[2023-01-29] MEDS: NICOTINE 14 MG/24HR TOPICAL PATCH TD SCH (09:57)
[2023-01-29] MEDS: ASCORBIC ACID 500 MG TAB PO SCH ×2 (09:58→22:53)
[2023-01-29] MEDS: TRIAMCINOLONE ACET 0.1% TOPICAL CREAM 15GM TOP SCH ×2 (09:59→22:00)
[2023-01-29] MEDS: Pro-Stat SF 30ml Vanilla PO SCH (10:00)
[2023-01-29] MEDS: EUCERIN CREAM 2OZ TUBE TOP SCH ×2 (10:00→22:00)
[2023-01-29] MEDS: [UNRECOGNIZED DRUG - OTHER] TOP SCH ×2 (10:00→22:00)
[2023-01-29] MEDS: diphenhdrAMINE HCL 50 MG/1 ML VL IV PRN ×2 (10:06→22:56)
[2023-01-29 13:00] VITALS: BP 130/64
[2023-01-29 22:00] VITALS: BP_SYST 119
[2023-01-30 05:00] VITALS: BP_SYST 116; BP_SYST 120; BP_DIAS 48; BP_DIAS 56
[2023-01-30] MEDS: ACCU-CHEK COMFORT CURVE STRIP VI SCH ×4 (06:29→23:27)
[2023-01-30] MEDS: InsuLIN REG 1unit/0.01ml Soln (100units/ml) SC SCH ×4 (06:34→23:29)
[2023-01-30 07:30] VITALS: BP 132/80
[2023-01-30] MEDS: Ensure Enlive Strawberry 8oz Bottle PO SCH ×2 (08:00→18:12)
[2023-01-30 09:00] VITALS: BP 132/80
[2023-01-30] MEDS: DOCUSATE SOD 100 MG CAP PO SCH ×2 (11:46→23:26)
[2023-01-30] MEDS: ZINC SULFATE 220mg CAP or TAB PO SCH (11:47)
[2023-01-30] MEDS: ASCORBIC ACID 500 MG TAB PO SCH ×2 (11:48→23:26)
[2023-01-30] MEDS: MULTIPLE VITAMIN TAB PO SCH (11:49)
[2023-01-30] MEDS: NICOTINE 14 MG/24HR TOPICAL PATCH TD SCH (12:40)
[2023-01-30] MEDS: CEFEPIME 1GM/ 50ML 50 ML IV SCH ×2 (12:40→23:26)
[2023-01-30] MEDS: Pro-Stat SF 30ml Vanilla PO SCH (12:40)
[2023-01-30] MEDS: TRIAMCINOLONE ACET 0.1% TOPICAL CREAM 15GM TOP SCH ×2 (12:41→23:27)
[2023-01-30] MEDS: EUCERIN CREAM 2OZ TUBE TOP SCH ×2 (12:41→23:27)
[2023-01-30] MEDS: [UNRECOGNIZED DRUG - OTHER] TOP SCH ×2 (12:41→23:26)
[2023-01-30 13:00] VITALS: BP 127/84
[2023-01-30 22:00] VITALS: BP 128/45
[2023-01-31 05:00] VITALS: BP 131/79
[2023-01-31] MEDS: diphenhdrAMINE HCL 50 MG/1 ML VL IV PRN (05:47)
[2023-01-31] MEDS: ACCU-CHEK COMFORT CURVE STRIP VI SCH ×4 (05:48→22:04)
[2023-01-31] MEDS: InsuLIN REG 1unit/0.01ml Soln (100units/ml) SC SCH ×4 (05:57→22:06)
[2023-01-31 09:01] VITALS: BP 136/53
[2023-01-31] MEDS: DOCUSATE SOD 100 MG CAP PO SCH ×2 (12:04→22:03)
[2023-01-31] MEDS: ASCORBIC ACID 500 MG TAB PO SCH ×2 (12:04→22:04)
[2023-01-31] MEDS: MULTIPLE VITAMIN TAB PO SCH (12:04)
[2023-01-31] MEDS: Pro-Stat SF 30ml Vanilla PO SCH (12:04)
[2023-01-31] MEDS: Ensure Enlive Strawberry 8oz Bottle PO SCH ×2 (12:05→18:31)
[2023-01-31] MEDS: NICOTINE 14 MG/24HR TOPICAL PATCH TD SCH (12:05)
[2023-01-31] MEDS: TRIAMCINOLONE ACET 0.1% TOPICAL CREAM 15GM TOP SCH ×2 (12:06→22:04)
[2023-01-31] MEDS: EUCERIN CREAM 2OZ TUBE TOP SCH ×2 (12:06→22:05)
[2023-01-31] MEDS: [UNRECOGNIZED DRUG - OTHER] TOP SCH ×2 (12:23→22:05)
[2023-01-31] MEDS: ZINC SULFATE 220mg CAP or TAB PO SCH (12:30)
[2023-01-31] MEDS: CEFEPIME 1GM/ 50ML 50 ML IV SCH ×2 (12:42→22:03)
[2023-01-31 12:58] VITALS: BP 130/46
[2023-01-31 22:00] VITALS: BP 131/51
[2023-02-01 05:00] VITALS: BP 118/64
[2023-02-01] MEDS: ACCU-CHEK COMFORT CURVE STRIP VI SCH ×4 (06:10→22:36)
[2023-02-01] MEDS: InsuLIN REG 1unit/0.01ml Soln (100units/ml) SC SCH ×4 (06:13→22:52)
[2023-02-01 09:00] VITALS: BP 143/50
[2023-02-01] MEDS: Ensure Enlive Strawberry 8oz Bottle PO SCH ×2 (09:00→18:00)
[2023-02-01] MEDS: Pro-Stat SF 30ml Vanilla PO SCH (10:00)
[2023-02-01] MEDS: ZINC SULFATE 220mg CAP or TAB PO SCH (10:23)
[2023-02-01] MEDS: CEFEPIME 1GM/ 50ML 50 ML IV SCH (10:23)
[2023-02-01] MEDS: ASCORBIC ACID 500 MG TAB PO SCH ×2 (10:23→22:44)
[2023-02-01] MEDS: DOCUSATE SOD 100 MG CAP PO SCH ×2 (10:23→22:44)
[2023-02-01] MEDS: MULTIPLE VITAMIN TAB PO SCH (10:23)
[2023-02-01] MEDS: ACETAMINOPHEN 325 MG TAB PO PRN (10:39)
[2023-02-01] MEDS: NICOTINE 14 MG/24HR TOPICAL PATCH TD SCH (10:39)
[2023-02-01] MEDS: TRIAMCINOLONE ACET 0.1% TOPICAL CREAM 15GM TOP SCH ×2 (10:40→22:00)
[2023-02-01] MEDS: EUCERIN CREAM 2OZ TUBE TOP SCH ×2 (10:40→22:00)
[2023-02-01] MEDS: [UNRECOGNIZED DRUG - OTHER] TOP SCH ×2 (10:40→22:00)
[2023-02-01 16:52] VITALS: BP 119/50
[2023-02-01 21:55] VITALS: BP 113/56
[2023-02-02 05:00] VITALS: BP 129/53
[2023-02-02] MEDS: ACCU-CHEK COMFORT CURVE STRIP VI SCH ×4 (05:17→22:43)
[2023-02-02] MEDS: InsuLIN REG 1unit/0.01ml Soln (100units/ml) SC SCH ×4 (05:17→23:01)
[2023-02-02 08:46] VITALS: BP 134/71
[2023-02-02] MEDS: ZINC SULFATE 220mg CAP or TAB PO SCH (10:00)
[2023-02-02] MEDS: DOCUSATE SOD 100 MG CAP PO SCH ×2 (10:00→22:43)
[2023-02-02] MEDS: ASCORBIC ACID 500 MG TAB PO SCH ×2 (10:00→22:43)
[2023-02-02] MEDS: MULTIPLE VITAMIN TAB PO SCH (10:00)
[2023-02-02] MEDS: NICOTINE 14 MG/24HR TOPICAL PATCH TD SCH (10:06)
[2023-02-02] MEDS: Pro-Stat SF 30ml Vanilla PO SCH (10:53)
[2023-02-02] MEDS: Ensure Enlive Strawberry 8oz Bottle PO SCH ×2 (10:53→17:06)
[2023-02-02] MEDS ORDERED: VANCOMYCIN PER PHARMACY 0 MG IV SCH (12:30)
[2023-02-02 13:01] VITALS: BP 137/74
[2023-02-02] MEDS: VANCOMYCIN 1GM/250ML 250 ML IV SCH (14:00)
[2023-02-02] MEDS: TRIAMCINOLONE ACET 0.1% TOPICAL CREAM 15GM TOP SCH ×2 (15:53→22:00)
[2023-02-02] MEDS: EUCERIN CREAM 2OZ TUBE TOP SCH ×2 (15:54→22:00)
[2023-02-02] MEDS: [UNRECOGNIZED DRUG - OTHER] TOP SCH ×2 (15:54→22:00)
[2023-02-02 17:06] VITALS: BP 147/47
[2023-02-03 05:00] VITALS: BP 131/52
[2023-02-03] MEDS: ACCU-CHEK COMFORT CURVE STRIP VI SCH ×4 (05:53→21:17)
[2023-02-03] MEDS: InsuLIN REG 1unit/0.01ml Soln (100units/ml) SC SCH ×4 (06:20→23:50)
[2023-02-03 09:00] VITALS: BP 148/60
[2023-02-03] MEDS: ZINC SULFATE 220mg CAP or TAB PO SCH (10:26)
[2023-02-03] MEDS: DOCUSATE SOD 100 MG CAP PO SCH ×2 (10:26→21:16)
[2023-02-03] MEDS: ASCORBIC ACID 500 MG TAB PO SCH ×2 (10:26→21:16)
[2023-02-03] MEDS: MULTIPLE VITAMIN TAB PO SCH (10:26)
[2023-02-03] MEDS: TRIAMCINOLONE ACET 0.1% TOPICAL CREAM 15GM TOP SCH ×2 (10:27→21:17)
[2023-02-03] MEDS: NICOTINE 14 MG/24HR TOPICAL PATCH TD SCH (10:27)
[2023-02-03] MEDS: EUCERIN CREAM 2OZ TUBE TOP SCH ×2 (10:27→21:16)
[2023-02-03] MEDS: Ensure Enlive Strawberry 8oz Bottle PO SCH ×2 (10:28→18:00)
[2023-02-03] MEDS: [UNRECOGNIZED DRUG - OTHER] TOP SCH ×2 (10:30→21:17)
[2023-02-03] MEDS: Pro-Stat SF 30ml Vanilla PO SCH (10:31)
[2023-02-03 13:00] VITALS: BP 152/54
[2023-02-03] MEDS: ERGOCALCIFEROL 50,000 UNIT(1.25MG) CAP PO SCH (13:12)
[2023-02-03] MEDS: ACETAMINOPHEN 325 MG TAB PO PRN ×2 (13:13→21:16)
[2023-02-03] MEDS: VANCOMYCIN 1GM/250ML 250 ML IV SCH (16:13)
[2023-02-03 17:00] VITALS: BP 149/60
[2023-02-03 20:00] VITALS: BP 135/78
[2023-02-03] MEDS: diphenhdrAMINE HCL 50 MG/1 ML VL IV PRN (21:16)
[2023-02-03 22:00] VITALS: BP 135/58
[2023-02-03] MEDS: DOXYCYCLINE 100 MG TAB/CAP PO SCH (23:53)
[2023-02-04 05:00] VITALS: BP 154/72
[2023-02-04] MEDS: ACETAMINOPHEN 325 MG TAB PO PRN (05:39)
[2023-02-04] MEDS: ACCU-CHEK COMFORT CURVE STRIP VI SCH ×4 (05:39→21:52)
[2023-02-04] MEDS: InsuLIN REG 1unit/0.01ml Soln (100units/ml) SC SCH ×4 (06:01→21:58)
[2023-02-04 07:19] LABS: Basophils # (auto) 0.1 10 ^3/uL (0-0.2); Basophils % (auto) 1.4 % (0.0-2.0); Eosinophils # (auto) 0.4 10 ^3/uL (0-0.8); Eosinophils % (auto) 5.9 % (0.0-7.0); Hematocrit 30.7 % (41.0-53.0); Hemoglobin 10.3 g/dL (13.5-17.5); Lymphocytes # (auto) 2.1 10 ^3/uL (0.4-5.4); Lymphocytes % (auto) 27.8 % (10.0-50.0); Mean Corpuscular Hemoglobin 30.1 pg (28.0-32.0); Mean Corpuscular Hgb Conc. 33.4 g/dL (32.0-36.0); Monocytes # (auto) 0.6 10 ^3/uL (0-1.3); Monocytes % (auto) 7.8 % (0.0-12.0); Neutrophils # (auto) 4.2 10 ^3/uL (1.6-8.6); Neutrophils % (auto) 57.1 % (37.0-80.0); Nucleated Red Blood Cells % 0.1 %; Red Blood Cells 3.41 10^6/uL (4.5-5.90); Red Cell Distribution Width 14.3 % (11.8-14.3); White Blood Cell 7.4 10^3/uL (4.4-10.8)
[2023-02-04 07:33] LABS: BUN/Creatinine Ratio 26.8 (10.0-20.0); Calcium 8.6 mg/dL (8.5-10.1); Potassium 4.2 mmol/L (3.5-5.1)
[2023-02-04 08:00] VITALS: BP 155/64
[2023-02-04 08:55] VITALS: BP 155/64
[2023-02-04] MEDS: DOCUSATE SOD 100 MG CAP PO SCH ×2 (10:36→21:48)
[2023-02-04] MEDS: DOXYCYCLINE 100 MG TAB/CAP PO SCH ×2 (10:37→21:48)
[2023-02-04] MEDS: MULTIPLE VITAMIN TAB PO SCH (10:37)
[2023-02-04] MEDS: ASCORBIC ACID 500 MG TAB PO SCH ×2 (10:37→21:48)
[2023-02-04] MEDS: ZINC SULFATE 220mg CAP or TAB PO SCH (10:37)
[2023-02-04] MEDS: NICOTINE 14 MG/24HR TOPICAL PATCH TD SCH (10:49)
[2023-02-04] MEDS: TRIAMCINOLONE ACET 0.1% TOPICAL CREAM 15GM TOP SCH ×2 (10:50→21:53)
[2023-02-04] MEDS: [UNRECOGNIZED DRUG - OTHER] TOP SCH ×2 (10:51→21:53)
[2023-02-04] MEDS: EUCERIN CREAM 2OZ TUBE TOP SCH ×2 (10:51→21:53)
[2023-02-04] MEDS: Pro-Stat SF 30ml Vanilla PO SCH (11:55)
[2023-02-04 13:00] VITALS: BP 148/64
[2023-02-04 17:00] VITALS: BP 134/45
[2023-02-04] MEDS: Ensure Enlive Strawberry 8oz Bottle PO SCH (18:00)
[2023-02-04 22:07] VITALS: BP 126/48
[2023-02-05] MEDS: diphenhdrAMINE HCL 50 MG/1 ML VL IV PRN (00:35)
[2023-02-05 05:24] VITALS: BP 147/49
[2023-02-05] MEDS: ACCU-CHEK COMFORT CURVE STRIP VI SCH ×4 (06:22→22:36)
[2023-02-05] MEDS: InsuLIN REG 1unit/0.01ml Soln (100units/ml) SC SCH ×5 (06:22→21:48)
[2023-02-05 08:00] VITALS: BP 127/74
[2023-02-05] MEDS: MULTIPLE VITAMIN TAB PO SCH (11:18)
[2023-02-05] MEDS: ZINC SULFATE 220mg CAP or TAB PO SCH (11:19)
[2023-02-05] MEDS: DOCUSATE SOD 100 MG CAP PO SCH ×2 (11:19→21:49)
[2023-02-05] MEDS: ASCORBIC ACID 500 MG TAB PO SCH ×2 (11:25→21:49)
[2023-02-05] MEDS: DOXYCYCLINE 100 MG TAB/CAP PO SCH ×2 (11:25→21:49)
[2023-02-05] MEDS: Pro-Stat SF 30ml Vanilla PO SCH (11:26)
[2023-02-05] MEDS: NICOTINE 14 MG/24HR TOPICAL PATCH TD SCH (11:26)
[2023-02-05] MEDS: TRIAMCINOLONE ACET 0.1% TOPICAL CREAM 15GM TOP SCH ×2 (11:29→22:36)
[2023-02-05] MEDS: EUCERIN CREAM 2OZ TUBE TOP SCH ×2 (11:29→22:35)
[2023-02-05] MEDS: [UNRECOGNIZED DRUG - OTHER] TOP SCH ×2 (11:30→22:00)
[2023-02-05] MEDS: Ensure Enlive Strawberry 8oz Bottle PO SCH ×2 (11:40→19:42)
[2023-02-05 12:00] VITALS: BP 119/55
[2023-02-05 16:00] VITALS: BP 116/50
[2023-02-05 22:00] VITALS: BP 123/78
[2023-02-06] MEDS: diphenhdrAMINE HCL 50 MG/1 ML VL IV PRN (02:15)
[2023-02-06 05:05] VITALS: BP 114/60
[2023-02-06] MEDS: InsuLIN REG 1unit/0.01ml Soln (100units/ml) SC SCH ×2 (06:31→11:30)
[2023-02-06] MEDS: ACCU-CHEK COMFORT CURVE STRIP VI SCH ×2 (06:32→11:30)
[2023-02-06] MEDS: Ensure Enlive Strawberry 8oz Bottle PO SCH (08:00)
[2023-02-06 09:00] VITALS: BP 132/48
[2023-02-06] MEDS: [UNRECOGNIZED DRUG - OTHER] TOP SCH (10:00)
[2023-02-06] MEDS: Pro-Stat SF 30ml Vanilla PO SCH (11:00)
[2023-02-06] MEDS: ZINC SULFATE 220mg CAP or TAB PO SCH (11:12)
[2023-02-06] MEDS: DOCUSATE SOD 100 MG CAP PO SCH (11:13)
[2023-02-06] MEDS: ASCORBIC ACID 500 MG TAB PO SCH (11:13)
[2023-02-06] MEDS: MULTIPLE VITAMIN TAB PO SCH (11:14)
[2023-02-06] MEDS: DOXYCYCLINE 100 MG TAB/CAP PO SCH (11:14)
[2023-02-06] MEDS: TRIAMCINOLONE ACET 0.1% TOPICAL CREAM 15GM TOP SCH (11:16)
[2023-02-06] MEDS: NICOTINE 14 MG/24HR TOPICAL PATCH TD SCH (11:16)
[2023-02-06] MEDS: EUCERIN CREAM 2OZ TUBE TOP SCH (11:18)
[2023-02-06 12:13] VITALS: BP 132/48
== END 2023-02-06 14:15 | DRG 640 ==
LOC: ER 16:38 → EDBD 16:38 → EDUNIT# 16:38 → OVERFLOW 21:53 → WEST WING 01-12 21:04
PROVIDERS: ADMIT Nurse Practitioner Family; ATTEND Internal Medicine Geriatric Medicine
DX: R62.7 Adult failure to thrive (principal); E43 Unspecified severe protein-calorie malnutrition; J18.9 Pneumonia, unspecified organism; N17.9 Acute kidney failure, unspecified; E87.20 Acidosis, unspecified; Z68.1 Body mass index [BMI] 19.9 or less, adult; I12.9 Hypertensive chronic kidney disease with stage 1 through stage 4 chronic kidney disease, or unspecified chronic kidney disease; N18.9 Chronic kidney disease, unspecified; E86.0 Dehydration; D63.1 Anemia in chronic kidney disease; L98.9 Disorder of the skin and subcutaneous tissue, unspecified; F17.210 Nicotine dependence, cigarettes, uncomplicated; S20.319A Abrasion of unspecified front wall of thorax, initial encounter; S30.811A Abrasion of abdominal wall, initial encounter; K59.00 Constipation, unspecified; Y95 Nosocomial condition; Z20.822 Contact with and (suspected) exposure to COVID-19; R21 Rash and other nonspecific skin eruption; X58.XXXA Exposure to other specified factors, initial encounter; Y93.89 Activity, other specified; Y92.89 Other specified places as the place of occurrence of the external cause; Y99.8 Other external cause status
CPT/HCPCS: 36415; 71045; 76775; 80048; 80053; 80202; 81001; 82306; 82570; 82962; 83735; 83970; 84100; 84156; 84300; 84484; 85007; 85025; 85027; 85652; 86141; 87040; 87081; 87426; 93005; 93970; 97110; 97116; 97163; 97530; C9113; G0378; J0696; J1815